=== PATIENT | female | born 1945 | race African-American/Black ===

== ENCOUNTER → 2016-12-25 | Outpatient (CLI) | payer MEDICARE, MEDICAID ==
[~2016-12-25] MED LIST: AMIT100T2 PO; ASPI-785; DIGO125T82 PO; LOSA50TA20 PO; METO-298 PO; SIMV40TA5 PO; SITA1TAB4 PO
== END | disposition home or self-care (01) ==
LOC: MAMMO 08:33
PROVIDERS: ATTEND Internal Medicine
DX: Z12.31 Encounter for screening mammogram for malignant neoplasm of breast (principal)
CPT/HCPCS: G0202

== ENCOUNTER 2018-01-31 12:26 | Emergency (ER) | payer MEDICARE, MEDICAID ==
[~2018-01-31] VITALS: Ht 165.1 cm; Wt 89.0 kg
[~2018-01-31 12:26] MED LIST changes: -ASPI-785; +ASPI-785 PO; +DEXL60CA3 PO; +HYDR25TA PO; +IBUP-2028 PO; +MEGASTROL; -METO-298 PO; +METO-385 PO; +PANT40TA4 PO; +SUCR1TAB PO; +THIO10CA2 PO; +TRAZ-132 PO
[2018-01-31] MEDS ORDERED: TETANUS, DIPHTHERIA, PERTUSSIS VAC/PF 0.5ML (>7YR OLD) IM ONE (18:45)
[2018-01-31] MEDS ORDERED: BACITRACIN ZINC OINT UDPKT TOP ONE (18:45)
[2018-01-31 19:17] VITALS: BP 187/86
== END 2018-01-31 19:21 | disposition home or self-care (01) ==
LOC: ER 16:16
DX: T23.101A Burn of first degree of right hand, unspecified site, initial encounter (principal); I11.9 Hypertensive heart disease without heart failure; E11.9 Type 2 diabetes mellitus without complications; E78.00 Pure hypercholesterolemia, unspecified; Z90.710 Acquired absence of both cervix and uterus; Z88.6 Allergy status to analgesic agent; Z85.9 Personal history of malignant neoplasm, unspecified; Z88.0 Allergy status to penicillin; Z79.82 Long term (current) use of aspirin; X12.XXXA Contact with other hot fluids, initial encounter; Y93.G3 Activity, cooking and baking; Y92.010 Kitchen of single-family (private) house as the place of occurrence of the external cause
CPT/HCPCS: 90471; 90715; 99283

== ENCOUNTER → 2018-03-09 | Outpatient (CLI) | payer MEDICARE, MEDICAID | END | disposition home or self-care (01) | LOC: RAD 10:24 | PROVIDERS: ATTEND Internal Medicine | DX: M17.11 Unilateral primary osteoarthritis, right knee (principal); M79.672 Pain in left foot; M25.572 Pain in left ankle and joints of left foot | CPT/HCPCS: 73565; 73610; 73630 ==

== ENCOUNTER → 2018-03-30 | Outpatient (CLI) | payer MEDICARE, MEDICAID | END | disposition home or self-care (01) | LOC: MAMMO 09:52 | PROVIDERS: ATTEND Internal Medicine | DX: Z12.31 Encounter for screening mammogram for malignant neoplasm of breast (principal) | CPT/HCPCS: 77067 ==

== ENCOUNTER 2018-06-01 11:24 | Emergency (ER) | payer MEDICARE, MEDICAID ==
[~2018-06-01] VITALS: Ht 170.2 cm; Wt 84.0 kg
[~2018-06-01 11:24] MED LIST changes: +METF500T6 MT; -TRAZ-132 PO; +TRAZ-213 PO
[2018-06-01] MEDS ORDERED: MECLIZINE 25MG TABLET PO ONE ×2 (12:15→15:45)
[2018-06-01] MEDS ORDERED: ONDANSETRON 4MG ODT PO ONE ×2 (12:15→15:45)
[2018-06-01 12:46] LABS: BASOPHILS % 0.6 % (0.0-2.0); EOSINOPHILS % 0.8 % (0.0-5.0); HEMATOCRIT. 36.2 % (36.0-48.0); HEMOGLOBIN. 11.7 g/dL (12.0-16.0); LYMPHOCYTES % 7.6 % (20.0-50.0); MEAN CORPUSCULAR VOLUME 83.4 fL (81.0-99.0); MEAN PLATELET VOLUME 7.7 fl (7.4-10.4); MONOCYTES % 7.2 % (2.0-8.0); NEUTROPHILS % 83.8 % (40.0-76.0); PLATELET 283 x1000/uL (130-400); RED BLOOD CELL COUNT 4.34 mill/uL (4.2-5.4); RED CELL DISTRIBUTION WIDTH 14.5 % (11.6-14.6)
[2018-06-01 12:54] LABS: CHLORIDE 106 mEq/L (98-107)
[2018-06-01 15:19] VITALS: BP 114/67
== END 2018-06-01 15:41 | disposition home or self-care (01) ==
LOC: ER 11:24
DX: R42 Dizziness and giddiness (principal); R11.0 Nausea; I49.9 Cardiac arrhythmia, unspecified; C55 Malignant neoplasm of uterus, part unspecified; C78.00 Secondary malignant neoplasm of unspecified lung
CPT/HCPCS: 36415; 70450; 71045; 80053; 84484; 85025; 93005; 99285; Q0162; J8597

== ENCOUNTER 2018-06-27 13:51 | Inpatient (IN) | payer MEDICARE, MEDICAID ==
[~2018-06-27] VITALS: Ht 165.1 cm; Wt 81.6 kg
[~2018-06-27 13:51] MED LIST changes: +METF-414 MT; -METF500T6 MT
[2018-06-27] MEDS ORDERED: SODIUM CHLORIDE 0.9% 1,000 ML IV ONE (16:46)
[2018-06-27 17:25] LABS: CHLORIDE 102 mEq/L (98-107)
[2018-06-27 17:26] LABS: BASOPHILS % 0.6 % (0.0-2.0); EOSINOPHILS % 0.9 % (0.0-5.0); HEMATOCRIT. 32.1 % (36.0-48.0); HEMOGLOBIN. 10.4 g/dL (12.0-16.0); LYMPHOCYTES % 8.5 % (20.0-50.0); MEAN CORPUSCULAR HEMOGLOBIN 26.8 pg (28.0-32.0); MEAN CORPUSCULAR VOLUME 82.4 fL (81.0-99.0); MEAN PLATELET VOLUME 7.2 fl (7.4-10.4); MONOCYTES % 8.8 % (2.0-8.0); NEUTROPHILS % 81.2 % (40.0-76.0); PLATELET 347 x1000/uL (130-400); RED CELL DISTRIBUTION WIDTH 15.7 % (11.6-14.6)
[2018-06-27] MEDS ORDERED: ASPIRIN 325MG EC TABLET PO ONE (19:00)
[2018-06-27 22:30] VITALS: BP 154/56
[2018-06-27] MEDS ORDERED: ONDANSETRON HCL 4MG/2ML INJ IV PRN (23:15)
[2018-06-27] MEDS ORDERED: ENOXAPARIN 40MG/0.4ML SYR SUBCUT SCH (23:15)
[2018-06-27] MEDS ORDERED: HYDROCODONE/ACETAMINOPHEN 5/325MG TABLET PO PRN ×2 (23:15→23:45)
[2018-06-27] MEDS ORDERED: MORPHINE SULFATE 4 MG/ML CPJ (NOT FOR IM USE) IV PRN (23:30)
[2018-06-27] MEDS ORDERED: MORPHINE SULFATE 2 MG/ML CPJ (NOT FOR IM USE) IV PRN (23:45)
[2018-06-27] MEDS ORDERED: DEXTROSE 50% WATER 50ML SYRINGE IV PRN (23:45)
[2018-06-28] VITALS: BP 151/74
[2018-06-28] MEDS: ACETAMINOPHEN 325MG TABLET PO PRN ×3 (00:31→20:03)
[2018-06-28 04:00] VITALS: BP 159/72
[2018-06-28 06:27] LABS: BASOPHILS % 0.4 % (0.0-2.0); HEMATOCRIT. 29.4 % (36.0-48.0); HEMOGLOBIN. 9.6 g/dL (12.0-16.0); LYMPHOCYTES % 10.2 % (20.0-50.0); MEAN CORPUSCULAR HEMOGLOBIN 26.5 pg (28.0-32.0); MEAN CORPUSCULAR VOLUME 81.2 fL (81.0-99.0); MEAN PLATELET VOLUME 7.9 fl (7.4-10.4); MONOCYTES % 9.6 % (2.0-8.0); NEUTROPHILS % 77.8 % (40.0-76.0); PLATELET 345 x1000/uL (130-400); RED BLOOD CELL COUNT 3.62 mill/uL (4.2-5.4); RED CELL DISTRIBUTION WIDTH 15.7 % (11.6-14.6)
[2018-06-28] MEDS: INSULIN LISPRO 100 UNITS/ML SUBCUT SCH ×4 (06:31→20:38)
[2018-06-28] MEDS: BLOOD SUGAR DIAGNOSTIC STRIP TEST SCH ×4 (06:31→20:34)
[2018-06-28 06:39] LABS: CHLORIDE 104 mEq/L (98-107)
[2018-06-28 06:54] LABS: LDL CHOLESTEROL 50 mg/dL (5-100)
[2018-06-28 06:55] LABS: CREATINE KINASE 49 IU/L (26-192); HDL CHOLESTEROL 39 mg/dL (40-59)
[2018-06-28 06:59] LABS: CREATINE KINASE MB FRACTION 1.5 ng/mL (0.5-3.6)
[2018-06-28 08:00] VITALS: BP 158/59
[2018-06-28] MEDS: AMLODIPINE 10MG TABLET PO SCH (08:56)
[2018-06-28] MEDS: ASPIRIN 81MG EC TABLET PO SCH (10:11)
[2018-06-28] MEDS ORDERED: TRAMADOL 50MG TABLET PO PRN (11:30)
[2018-06-28 12:00] VITALS: BP 166/72
[2018-06-28] MEDS: CLONIDINE 0.1MG TABLET PO PRN (14:43)
[2018-06-28 16:00] VITALS: BP 159/69
[2018-06-28 17:00] LABS: CREATINE KINASE MB FRACTION 1.5 ng/mL (0.5-3.6)
[2018-06-28] MEDS: APIXABAN 5 MG TABLET PO SCH (17:19)
[2018-06-28] MEDS: FAMOTIDINE 20MG TABLET PO SCH (17:47)
[2018-06-28] MEDS ORDERED: FAMOTIDINE 20MG TABLET PO SCH ×2 (18:00→21:00)
[2018-06-28 19:50] VITALS: BP 150/77
[2018-06-29] VITALS (7 sets, daily range): BP systolic 135–189; BP diastolic 70–94
[2018-06-29] MEDS: ACETAMINOPHEN 325MG TABLET PO PRN ×3 (02:44→17:59)
[2018-06-29] MEDS: CLONIDINE 0.1MG TABLET PO PRN (04:05)
[2018-06-29] MEDS: FAMOTIDINE 20MG TABLET PO SCH ×2 (06:27→18:00)
[2018-06-29] MEDS: INSULIN LISPRO 100 UNITS/ML SUBCUT SCH ×4 (06:30→21:00)
[2018-06-29] MEDS: BLOOD SUGAR DIAGNOSTIC STRIP TEST SCH ×4 (06:30→21:20)
[2018-06-29] MEDS: ASPIRIN 81MG EC TABLET PO SCH (09:00)
[2018-06-29] MEDS: HYDROCHLOROTHIAZIDE 25MG TABLET PO SCH (09:20)
[2018-06-29] MEDS: MEGESTROL ACETATE 20MG TABLET PO SCH ×2 (09:20→17:58)
[2018-06-29] MEDS: APIXABAN 5 MG TABLET PO SCH ×2 (09:20→17:58)
[2018-06-29] MEDS: DIGOXIN 125MCG TABLET PO SCH (09:20)
[2018-06-29] MEDS: AMLODIPINE 10MG TABLET PO SCH (09:21)
[2018-06-29] MEDS ORDERED: REGADENOSON 0.4 MG/5 ML IV ONE (17:45)
[2018-06-29] MEDS ORDERED: AMITRIPTYLINE 25MG TABLET PO PRN (19:15)
[2018-06-30] VITALS: BP 136/76
[2018-06-30 04:00] VITALS: BP 156/79
[2018-06-30] MEDS: FAMOTIDINE 20MG TABLET PO SCH (06:00)
[2018-06-30] MEDS: BLOOD SUGAR DIAGNOSTIC STRIP TEST SCH ×2 (06:47→11:59)
[2018-06-30] MEDS: INSULIN LISPRO 100 UNITS/ML SUBCUT SCH ×2 (07:50→11:59)
[2018-06-30 08:00] VITALS: BP 137/74
[2018-06-30] MEDS ORDERED: REGADENOSON 0.4 MG/5 ML IV ONE (08:40)
[2018-06-30] MEDS: ASPIRIN 81MG EC TABLET PO SCH (09:00)
[2018-06-30 09:35] VITALS: BP 137/74
[2018-06-30] MEDS: MEGESTROL ACETATE 20MG TABLET PO SCH (10:07)
[2018-06-30] MEDS: DIGOXIN 125MCG TABLET PO SCH (10:07)
[2018-06-30] MEDS: APIXABAN 5 MG TABLET PO SCH (10:07)
[2018-06-30] MEDS: AMLODIPINE 10MG TABLET PO SCH (10:07)
[2018-06-30] MEDS: HYDROCHLOROTHIAZIDE 25MG TABLET PO SCH (10:07)
[2018-06-30 12:33] VITALS: BP 110/50
== END 2018-06-30 14:00 | disposition home health service (06) | DRG 641 ==
LOC: ER 14:26 → 6WST 20:22 → EDBEDREQSVC 20:24 → EDBEDREQTM 20:24 → EDBEDREQ 20:24 → ENRESERV 20:35
PROVIDERS: ADMIT Hospitalist; ATTEND Hospitalist
DX: E86.0 Dehydration (principal); C78.00 Secondary malignant neoplasm of unspecified lung; E11.9 Type 2 diabetes mellitus without complications; E78.00 Pure hypercholesterolemia, unspecified; I25.10 Atherosclerotic heart disease of native coronary artery without angina pectoris; E78.5 Hyperlipidemia, unspecified; M54.5 Low back pain; I11.9 Hypertensive heart disease without heart failure; Z96.659 Presence of unspecified artificial knee joint; C55 Malignant neoplasm of uterus, part unspecified; Z88.0 Allergy status to penicillin; Z88.6 Allergy status to analgesic agent; Z79.84 Long term (current) use of oral hypoglycemic drugs; Z86.711 Personal history of pulmonary embolism; Z90.710 Acquired absence of both cervix and uterus; Z79.82 Long term (current) use of aspirin; Z79.899 Other long term (current) drug therapy
CPT/HCPCS: 36415; 71045; 72128; 72131; 78452; 80061; 82550; 82553; 82962; 84484; 93005; 93017; 93306; 93970; 99285; A9500; J1650; J2785; J7030